=== PATIENT | male | born 1985 | race American Indian/Alaskan Native ===

== ENCOUNTER 2020-07-04 18:58 | Emergency (ER) | payer BC, MEDICAID ==
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
== END 2020-07-04 19:45 | disposition home or self-care (01) ==
LOC: DL.ED 18:58
DX: S82.891A Other fracture of right lower leg, initial encounter for closed fracture (principal); Z88.0 Allergy status to penicillin; V89.2XXA Person injured in unspecified motor-vehicle accident, traffic, initial encounter
CPT/HCPCS: 99282; 99283